=== PATIENT | male | born 1950 | race Caucasian/White ===

== ENCOUNTER → 2018-10-01 | Day surgery (SDC) | payer OTHER ==
[2018-09-24 13:28] LABS: BASOPHILS % 0.3 % (0.0-1.0); EOSINOPHILS # (AUTO) 0.1 (0.0-0.4); EOSINOPHILS % 1.3 % (0.0-6.0); HEMATOCRIT 42.2 % (38.2-49.6); LYMPHOCYTES # (AUTO) 3.1 (1.0-3.2); LYMPHOCYTES % 32.8 % (18.0-39.1); MEAN CORPUSCULAR HEMOGLOBIN 30.9 pg (28-32); MEAN CORPUSCULAR HGB CONC 33.2 g/dL (31-35); MEAN CORPUSCULAR VOLUME 93.2 fL (81-99); MONOCYTES # (AUTO) 1.1 (0.2-0.8); NEUTROPHILS % 53.4 % (38.7-80.0); PLATELET COUNT 219 x10e3/uL (140-360); RED BLOOD COUNT 4.53 x10e6/uL (4.3-5.7); RED CELL DISTRIBUTION WIDTH 12.7 % (11.7-14.4)
[~2018-10-01] MED LIST: FENTANYL CITRATE/PF 100MCG/2 ML INJ ONE; MIDAZOLAM HCL 2 MG/2 ML VIAL ONE; NORCO 7.5-3251 EACH PO; PROPOFOL IV EMULSION 10 MG/ML 50 ML VIAL ONE; PROPRANOLOL HCL40 MG PO; SIMVASTATIN40 MG PO
--- OUTSIDE RECORDS SUMMARY | 2018-10-01 06:58 | XMS REPORT | Clinical Summary ---
Author Author [facility] Organization [facility] Address Unknown Phone Unavailable Care Team Providers Care Alarm Operator Name Role Phone Rafael Dennis MD PCP Allergies Comments Active Allergy Reactions Severity Noted Date Morphine GI 05/17/2018 Intolerance Medications End Date Status Medication Sig Dispensed Refills Start Date Active simvastatin (ZOCOR) 40 MG Take 40 mg by 0 tablet mouth nightly. Active propranolol LA (INDERAL Take 60 mg by 0 LA) 60 MG 24 hr capsule mouth nightly. Active HYDROcodone-acetaminophen Take 1 tablet 0 (NORCO) 7.5-325 mg per by mouth tablet every 6 (six) hours as needed for moderate pain. Active docusate sodium (COLACE) Take 100 mg 0 100 MG capsule by mouth 2 (two) times a day. Active NICOTINE TD Place 1 patch 0 on the skin daily. Active bisacodyl (DULCOLAX) 5 mg Take 2 30 tablet 0 EC tablet tablets (10 8 mg total) by mouth daily as needed for constipation for up to 30 doses. 10/06/2018 Active diclofenac (VOLTAREN) 1 % Apply 80 g 0 gel topically 4 8 (four) times a day for 30 days. 2018 ondansetron ODT Take 1 tablet 16 tablet 1 (ZOFRAN-ODT) 4 MG (4 mg total) 8 disintegrating tablet by mouth every 8 (eight) hours as needed for nausea or vomiting for up to 30 days. 07/20/2018 oxyCODone-acetaminophen Take 1 tablet 60 tablet 0 (PERCOCET) 10-325 mg per by mouth 8 tablet every 4 (four) hours as needed for moderate pain for up to 60 days. Max Daily Amount: 6 tablets Active Problems Problem Noted Date Small bowel obstruction 09/01/2018 Lumbar radiculopathy 05/20/2018 Spinal stenosis, lumbar region, with neurogenic claudication 05/20/2018 Encounters Care Team Description Date Type Specialty Mariann Nunes MD Berberian, Esteban N., MD Small bowel obstruction (HCC) (Primary Dx); Sepsis, due to unspecified organism (HCC) 09/01/2018 [facility] General Internal Medicine - Encounter 09/06/2018 Lee Ann Freed MD 05/20/2018 Anesthesia General Surgery Event Yann Kumar MD LUMBAR LEFT L2-3, L3-4 DECOMPRESSION 05/20/2018 Surgery General Surgery Yann Kumar MD 05/20/2018 Hospital General Surgery - Encounter 05/21/2018 Yann Kumar MD 05/20/2018 Prep for Orthopedic Surgery Surgery Yann Kumar MD Preop testing 05/17/2018 Hospital Radiology Encounter Yann Kumar MD Preop testing (Primary Dx) 05/17/2018 Pre-Admit Pre-Admission Testing Testing Appointment after 09/30/2017 Family History Medical History Relation Name Comments Heart disease Father Heart disease Mother Relation Name Status Comments Father Mother Social History Date Tobacco Use Types Packs/Day Years Used Current Some Day Smoker Cigarettes 0.5 55 Smokeless Tobacco: Current User Alcohol Use Drinks/Week oz/Week Comments Yes social Transportation Needs Answer Date Recorded In the past 12 months, has lack of transportation No 09/01/2018 kept you from medical appointments or from getting medications? In the past 12 months, has lack of transportation No 09/01/2018 kept you from meetings, work, or getting things needed for daily living? Sex Assigned at Date Recorded Not on file Industry Job Start Date Occupation Not on file Not on file Not on file Travel End Travel History Travel Start No recent travel history available. Last Filed Vital Signs Time Taken Vital Sign Reading 09/06/2018 3:31 PM [facility] Blood Pressure 146/68 09/06/2018 3:31 PM [facility] Pulse 58 09/06/2018 3:31 PM [facility] EXTR[facility] Temperature 36.8 C (98.3 F) 09/06/2018 3:31 PM [facility] Respiratory Rate 18 09/06/2018 3:31 PM [facility]IAL EXTRACTOR [facility] Oxygen Saturation 96% - Inhaled Oxygen - Concentration 09/06/2018 1:02 AM [facility]PATIAL EXTRACTOR [facility] Weight 85 kg (187 lb 6.4 oz) 09/01/2018 6:40 PM [facility]IAL EXTR[facility] Height 185.4 cm (6' 1") 09/06/2018 1:02 AM [facility]PATIAL EXTRACTOR [facility] Body Mass Index 24.72 Plan of Treatment Health Maintenance Due Date Last Done Comments COLON CANCER SCREENING 1999 SHINGRIX VACCINE (1 of 2) 1999 ZOSTER VACCINE 2009 PNEUMOCOCCAL 2014 POLYSACCHARIDE VACCINE AGE 65 AND OVER PNEUMOCOCCAL-13 2014 INFLUENZA VACCINE 05/22/2018 Procedures Comments Procedure Name Priority Date/Time Associated Diagnosis POC GLUCOSE Routine 09/06/2018 9:52 AM [facility] EXTR[facility] ESTIMATED GFR Routine 09/06/2018 6:30 AM [facility]PATIAL EXTR[facility]OR [facility] PHOSPHORUS LEVEL Routine 09/06/2018 6:30 AM [facility]PATIAL EXTRACTOR ANALYSIS MAGNESIUM LEVEL Routine 09/06/2018 6:30 AM [facility] EXTR[facility]OR [facility] BASIC METABOLIC PANEL Routine 09/06/2018 6:30 AM [facility] EXTR[facility]OR [facility] CBC HEMOGRAM Routine 09/06/2018 6:30 AM [facility]PATIAL EXTRACTOR [facility] POC GLUCOSE Routine 09/06/2018 5:51 AM GE[facility]PATIAL EXTRACTOR ANALYSIS POC GLUCOSE Routine 09/06/2018 12:53 AM GE[facility]PATIAL EXTRACTOR ANALYSIS POC GLUCOSE Routine 09/05/2018 8:59 PM GE[facility]PATIAL EXTRACTOR ANALYSIS POC GLUCOSE Routine 09/05/2018 3:38 PM [facility]PATIAL EXTRACTOR A[facility]YSIS POC GLUCOSE Routine 09/05/2018 11:08 AM [facility]PATIAL EXTRACTOR [facility]IS XR ABDOMEN 1 VW PORTABLE Routine 09/05/2018 8:58 AM GEOSPATIAL EXTRACTOR ANALYSIS POC GLUCOSE Routine 09/05/2018 4:58 AM [facility]PATIAL EXTRACTOR [facility]YSIS ESTIMATED GFR Routine 09/05/2018 4:55 AM [facility]PATIAL EXTRACTOR ANALYSIS PHOSPHORUS LEVEL Routine 09/05/2018 4:55 AM GEOSPATIAL EXTRACTOR ANALYSIS MAGNESIUM LEVEL Routine 09/05/2018 4:55 AM [facility]IAL EXTRACTOR [facility]YSIS BASIC METABOLIC PANEL Routine 09/05/2018 4:55 AM [facility] EXTRACTOR [facility] CBC HEMOGRAM Routine 09/05/2018 4:55 AM [facility] EXTRACTOR [facility] POC GLUCOSE Routine 09/05/2018 1:01 AM [facility]PATIAL EXTRACTOR ANALYSIS POC GLUCOSE Routine 09/04/2018 9:19 PM GEOSPATIAL EXTRACTOR ANALYSIS POC GLUCOSE Routine 09/04/2018 6:14 PM GE[facility]PATIAL EXTRACTOR ANALYSIS POC GLUCOSE Routine 09/04/2018 3:01 PM [facility]PATIAL EXTRACTOR ANALYSIS POC GLUCOSE Routine 09/04/2018 11:01 AM GE[facility]PATIAL EXTRACTOR ANALYSIS POC GLUCOSE Routine 09/04/2018 6:16 AM GE[facility]PATIAL EXTRACTOR ANALYSIS ESTIMATED GFR Routine 09/04/2018 4:20 AM GE[facility]PATIAL EXTRACTOR ANALYSIS PHOSPHORUS LEVEL Routine 09/04/2018 4:20 AM GE[facility]PATIAL EXTRACTOR ANALYSIS MAGNESIUM LEVEL Routine 09/04/2018 4:20 AM [facility]IAL EXTRACTOR [facility]YSIS BASIC METABOLIC PANEL Routine 09/04/2018 4:20 AM [facility]IAL EXTRACTOR [facility] HC COMPLETE BLD COUNT Routine 09/04/2018 W/AUTO DIFF 4:20 AM [facility]PATIAL EXTRACTOR [facility]IS POC GLUCOSE Routine 09/04/2018 3:10 AM [facility]IAL EXTRACTOR [facility]IS POC GLUCOSE Routine 09/03/2018 8:40 PM [facility]PATIAL EXTRACTOR ANALYSIS POC GLUCOSE Routine 09/03/2018 5:14 PM [facility]IAL EXTRACTOR ANALYSIS POC GLUCOSE Routine 09/03/2018 4:44 PM [facility]PATIAL EXTRACTOR ANALYSIS POC GLUCOSE Routine 09/03/2018 4:34 PM [facility] EXTRACTOR [facility] XR CHEST 1 VW PORTABLE STAT 09/03/2018 11:30 AM [facility]PATIAL EXTRACTOR [facility]YSIS HC CATH DUAL LUMEN PICC Routine 09/03/2018 11:25 AM [facility] EXTRACTOR [facility] HC US GUIDED VASCULAR Routine 09/03/2018 ACCESS 11:25 AM [facility]PATIAL EXTRACTOR [facility] HC CVL PICC INSERT 5 YRS Routine 09/03/2018 OR > 11:25 AM [facility]PATIAL EXTRACTOR [facility]IS LACTIC ACID LEVEL Routine 09/03/2018 6:15 AM [facility]PATIAL EXTRACTOR [facility]YSIS ESTIMATED GFR Routine 09/03/2018 6:15 AM [facility] EXTRACTOR [facility] CBC HEMOGRAM Routine 09/03/2018 6:15 AM [facility]PATIAL EXTRACTOR [facility]YSIS IONIZED CALCIUM Routine 09/03/2018 6:15 AM [facility]PATIAL EXTRACTOR ANALYSIS PHOSPHORUS LEVEL Routine 09/03/2018 6:15 AM GE[facility]PATIAL EXTRACTOR ANALYSIS MAGNESIUM LEVEL Routine 09/03/2018 6:15 AM [facility]PATIAL EXTRACTOR [facility]NALYSIS COMPREHENSIVE METABOLIC Routine 09/03/2018 PANEL 6:15 AM [facility]IAL EXTRACTOR [facility]IS ESTIMATED GFR STAT 09/02/2018 7:20 AM [facility]PATIAL EXTRACTOR ANALYSIS BASIC METABOLIC PANEL STAT 09/02/2018 7:20 AM [facility] EXTRACTOR [facility] HC COMPLETE BLD COUNT STAT 09/02/2018 W/AUTO DIFF 7:20 AM [facility]PATIAL EXTRACTOR ANALYSIS LACTIC ACID LEVEL STAT 09/02/2018 7:20 AM GE[facility]PATIAL EXTRACTOR ANALYSIS LACTIC ACID LEVEL, SEPSIS Timed 09/02/2018 - NOW AND REPEAT 2X EVERY 4:26 AM [facility]PATIAL EXTRACTOR [facility]IS 3 HOURS LACTIC ACID LEVEL, SEPSIS Timed 09/02/2018 - NOW AND REPEAT 2X EVERY 1:55 AM [facility] EXTR[facility] 3 HOURS XR ABDOMEN 1 VW STAT 09/01/2018 10:03 PM [facility]PATIAL EXTRACTOR [facility]IS URINALYSIS SCREEN AND Routine 09/01/2018 MICROSCOPY, WITH REFLEX 9:58 PM [facility]PAT[facility] EXTRACTOR [facility] TO CULTURE URINE CULTURE Routine 09/01/2018 9:[address] ABDOMEN PELVIS W STAT 09/01/2018 CONTRAST 8:52 PM [facility]PATIAL EXTRACTOR [facility]NALYSIS BLOOD CULTURE, AEROBIC & Routine 09/01/2018 ANAEROBIC 7:37 PM [facility]PATIAL EXTRACTOR [facility]NALYSIS BLOOD CULTURE, AEROBIC & Routine 09/01/2018 ANAEROBIC 7:34 PM [facility] EXTRACTOR [facility]IS XR ABDOMEN 2 VW AP W STAT 09/01/2018 UPRIGHT AND/OR DECUBITUS 7:27 PM [facility]PATIAL EXTRACTOR [facility]YSIS ECG 12-LEAD STAT 09/01/2018 7:09 PM GEOSPATIAL EXTRACTOR ANALYSIS LACTIC ACID LEVEL, SEPSIS Timed 09/01/2018 - NOW AND REPEAT 2X EVERY 6:55 PM [facility]PATIAL EXTRACTOR [facility]YSIS 3 HOURS MANUAL DIFFERENTIAL STAT 09/01/2018 6:55 PM GEOSPATIAL EXTRACTOR ANALYSIS ESTIMATED GFR STAT 09/01/2018 6:55 PM GEOSPATIAL EXTRACTOR ANALYSIS LIPASE LEVEL STAT 09/01/2018 6:55 PM [facility]PATIAL EXTRACTOR ANALYSIS COMPREHENSIVE METABOLIC STAT 09/01/2018 PANEL 6:55 PM [facility]PATIAL EXTRACTOR [facility]NALYSIS CBC WITH PLATELET AND STAT 09/01/2018 DIFFERENTIAL 6:55 PM [facility]PATIAL EXTRACTOR [facility]NALYSIS ECG ED PRELIMINARY Routine 09/01/2018 INTERPRETATION 6:52 PM GEOSPATIAL EXTRACTOR ANALYSIS OR FL > 1 HOUR Routine 05/20/2018 2:53 PM CDT XR LUMBAR SPINE 1 VW Routine 05/20/2018 2:50 PM CDT TYPE AND SCREEN Routine 05/20/2018 1:18 PM CDT MA AN ELECTIVE Routine 05/20/2018 ENDOTRACHEAL AIRWAY 9:21 AM CDT Procedure Note - Lee Ann Freed MD - 05/20/2018 9:21 AM CDT Airway Date/Time: 05/20/2018 8:55 AM Performed by: LEE ANN FREED Authorized by: LEE ANN FREED Urgency: Elective Difficult Airway: No Anesthesio logist: LEE ANN FREED Preoxygena suma with 100% O2: Yes C-spine Precaution s Maintained Throughout : Yes Mask Ventilatio n: Easy mask Final Airway Type: Endotrache al airway Final Endotrache al Airway: ETT Cuffed: Yes Technique Used: Direct laryngosco py Devices/Me thods Used in Placement: Intubatin g stylet Insertion Site: Oral Laryngosco pe Blade/Vide olaryngosc ope Blade Size: 2 ETT Size (mm): 8.0 Cuff at minimum occlusion pressure: Yes Measured from: Lips ETT to Lips (cm): 21 Placement Verified by: CO2 detection, direct visualizat ion and equal breath sounds Laryngosco pic view: Grade IIa - partial view of glottis Rapid Sequence Induction (RSI): No Modified RSI: No Number of Attempts at Approach: 1 LAMINECTOMY, LUMBAR 05/20/2018 LUMBAR STENOSIS 8:00 AM CDT M48.06, M54.16 Special Needs NEEDS ALTAF TABLE C-ARM, TEDS SCD,S, CLINDAMYCI N 900 MG IV, SSEP (OFFICE TO SCHEDULE W/ AXIS) XR CHEST 2 VW Routine 05/17/2018 Preop testing 9:45 AM CDT ECG 12-LEAD Routine 05/17/2018 Preop testing 9:21 AM CDT ZZESTIMATED GFR Routine 05/17/2018 9:21 AM CDT PROTHROMBIN TIME WITH INR Routine 05/17/2018 Preop testing 9:21 AM CDT PARTIAL THROMBOPLASTIN Routine 05/17/2018 Preop testing TIME (PTT) 9:21 AM CDT BASIC METABOLIC PANEL Routine 05/17/2018 Preop testing 9:21 AM CDT HC COMPLETE BLD COUNT Routine 05/17/2018 Preop testing W/AUTO DIFF 9:21 AM CDT after 09/30/2017 Results * POC glucose (09/06/2018 9:52 AM GEOSPATIAL EXTRACTOR ANALYSIS) Only the most recent of 18 results within the time period is included. POC glucose 140 (H) 65 - 100 mg/dL [facility] Comment: [employer] Meter ID: [id number] Cash Clerk: Eileen Dhillon Performing Organization Address City/State/Zipcode Phone Number [facility] [address] [place] [address] PATHOLOGY AND GENOMIC MEDICINE [facility] [place] [address] [place], [place] [id number] [place] [address] * Estimated GFR (09/06/2018 6:30 AM GEOSPATIAL EXTRACTOR ANALYSIS) Only the most recent of 6 results within the time period is included. Estimated GFR 87 mL/min/1.73 m2 [facility] Comment: [employer] CatergoryUnitsInte rpretation G1 >=90 Normal or high G2 60-89Mildly decreased [id number] Mildly to moderately decreased H8m80-40 Moderately to severely decreased G4 15-29Severely decreased G5 <15Kidney failure The eGFR was calculated using the Chronic Kidney Disease Epidemiology Collaboration (CKD-EPI) equation. Interpretation is based on recommendations of the National Kidney Foundation-Kidney Disease Outcomes Quality Initiative (NKF-KDOQI) published in 2014. Specimen Plasma specimen Performing Organization Address City/[facility]/[place] Phone Number [place] [address] [place] [phone] PATHOLOGY AND GENOMIC MEDICINE [address] * CBC hemogram (09/06/2018 6:30 AM GEOSPATIAL EXTRACTOR ANALYSIS) Only the most recent of 3 results within the time period is included. WBC 11.1 (H) 4.2 - 11.0 k/uL [facility] RBC 3.58 (L) 4.04 - 5.86 m/uL [facility] HGB 11.1 (L) 13.0 - 17.3 g/dL [facility] HCT 34.1 34.0 - 45.0 % [facility] MCV 95.3 80.0 - 98.0 fL [facility] MCH 31.0 27.0 - 34.0 pg [facility] MCHC 32.6 31.5 - 36.5 g/dL [facility] RDW - SD 43.7 37.0 - 51.0 fL [facility] MPV 11.3 (H) 7.4 - 10.4 fL [facility] Platelet count 156 150 - 400 k/uL [facility] Nucleated RBC 0.00 /100 WBC [facility] Specimen Blood Performing Organization Address City/[facility]/Zipcode Phone Number [address] [address] PATHOLOGY AND GENOMIC MEDICINE [address] * Phosphorus level (09/06/2018 6:30 AM GEOSPATIAL EXTRACTOR ANALYSIS) Only the most recent of 4 results within the time period is included. Phosphorus 2.5 2.4 - 4.5 mg/dL [facility] Specimen Plasma specimen Performing Organization Address [facility] Phone Number [place] [phone] PATHOLOGY AND GENOMIC MEDICINE [address] * Magnesium level (09/06/2018 6:30 AM GEOSPATIAL EXTRACTOR ANALYSIS) Only the most recent of 4 results within the time period is included. Magnesium 1.90 1.60 - 2.40 mg/dL [facility] Specimen Plasma specimen Performing Organization Address [facility] [place] [address] PATHOLOGY AND [facility] MEDICINE [address] * Basic metabolic panel (09/06/2018 6:30 AM GEOSPATIAL EXTRACTOR ANALYSIS) Only the most recent of 5 results within the time period is included. Sodium 141 135 - 150 mEq/L [facility] Potassium 3.9 3.5 - 5.0 mEq/L [facility] Chloride 104 98 - 112 mEq/L [facility] CO2 28 24 - 31 mmol/L [facility] Anion gap 9@ANIO 7 - 15 mEq/L [facility] BUN 18 7 - 18 mg/dL [facility] Creatinine 0.90 0.70 - 1.20 mg/dL [facility] Glucose 130 (H) 65 - 100 mg/dL [facility] Calcium 8.4 (L) 8.8 - 10.2 mg/dL [facility] Specimen Plasma specimen Performing Organization Address [facility]/Zipcode Phone Number [facility] OF [address] [place] [address] PATHOLOGY AND GENOMIC MEDICINE [facility] [address] [place] [address] [employer] [facility] * XR Abdomen 1 Vw Portable (09/05/2018 8:58 AM GEOSPATIAL EXTRACTOR ANALYSIS) Narrative Performed At EXAMINATION:XR ABDOMEN 1 VW [facility] CLINICAL HISTORY: Nauseavomiting COMPARISON:Abdominal radiograph from 09/01/[address] abdomen pelvis from 09/01/2018 IMPRESSION: 1.Mild improvement of gaseous distention of small bowel with some gas in the colon represents improving partial small bowel obstruction. 2.The nasogastric tube has been removed. 3.No pathologic intra-abdominal calcifications are present. 4.Multilevel lumbar spondylosis is noted. 5.Linear atelectasis is noted in the left lung base. I personally reviewed the images and the resident's findings and agree with the final report. [facility]-[id number] Procedure Note Hm Interface, Radiology Results Incoming - 09/05/2018 10:55 AM GEOSPATIAL EXTRACTOR ANALYSIS EXAMINATION: XR ABDOMEN 1 VW PORTABLE CLINICAL HISTORY: Nausea vomiting COMPARISON: Abdominal radiograph from 09/01/[address] abdomen pelvis from 09/01/2018 IMPRESSION: 1. Mild improvement of gaseous distention of small bowel with some gas in the colon represents improving partial small bowel obstruction. 2. The nasogastric tube has been removed. 3. No pathologic intra-abdominal calcifications are present. 4. Multilevel lumbar spondylosis is noted. 5. Linear atelectasis is noted in the left lung base. I personally reviewed the images and the resident's findings and agree with the final report. [facility]-[id number] Performing Organization Address City/State/Zipcode Phone Number [facility] [address] [place] [address] * CBC with platelet and differential (09/04/2018 4:20 AM GEOSPATIAL EXTRACTOR ANALYSIS) Only the most recent of 4 results within the time period is included. WBC 8.1 4.2 - 11.0 k/uL [facility] RBC 3.76 (L) 4.04 - 5.86 m/uL [facility] HGB 11.8 (L) 13.0 - 17.3 g/dL [facility] HCT 35.4 34.0 - 45.0 % [facility] MCV 94.1 80.0 - 98.0 fL [facility] MCH 31.4 27.0 - 34.0 pg [facility] MCHC 33.3 31.5 - 36.5 g/dL [facility] RDW - SD 42.9 37.0 - 51.0 fL [facility] MPV 11.2 (H) 7.4 - 10.4 fL [facility] Platelet count 148 (L) 150 - 400 k/uL [facility] Nucleated RBC 0.00 /100 WBC [facility] Neutrophils 63.9 36.0 - 66.0 % [facility] Lymphocytes 22.4 (L) 24.0 - 44.0 % [facility] Monocytes 11.3 (H) 0.0 - 6.0 % [facility] Eosinophils 1.6 0.0 - 6.0 % [facility] Basophils 0.4 0.0 - 1.2 % [facility] Immature granulocytes 0.4 0.0 - 1.0 % [facility] Specimen Blood Performing Organization Address City/State/Zipcode Phone Number [facility] DEPARTMENT OF [address] [facility] [place] [address] PATHOLOGY AND GENOMIC MEDICINE [facility] [address] [facility] [place], [place] [phone] [place] [address] * XR Chest 1 Vw Portable (09/03/2018 11:30 AM GEOSPATIAL EXTRACTOR ANALYSIS) Narrative Performed At Examination:XR CHEST 1 VW PORTABLE [facility] Clinical history:"tip of picc placement" Comparison:05/17/2018 IMPRESSION: There are no new alveolar opacities within either lung.No pneumothoraces are identified. The cardiomediastinal silhouette is unchanged. The bones of the chest are unchanged. Right central line is seen with its tip in lower SVC. Nasogastric tube courses into the stomach. [facility]-[id number] Procedure Note Hm Interface, Radiology Results Incoming - 09/03/2018 11:36 AM GEOSPATIAL EXTRACTOR ANALYSIS Examination: XR CHEST 1 VW PORTABLE Clinical history: "tip of picc placement" Comparison: 05/17/2018 IMPRESSION: There are no new alveolar opacities within either lung. No pneumothoraces are identified. The cardiomediastinal silhouette is unchanged. The bones of the chest are unchanged. Right central line is seen with its tip in lower SVC. Nasogastric tube courses into the stomach. [facility]-[id number] Performing Organization Address City/State/Zipcode Phone Number [facility] [address] [place] [address] * PICC insertion (09/03/2018 11:25 AM GEOSPATIAL EXTRACTOR ANALYSIS) Narrative Performed At Barbara Santamaria RN 09/03/2018 11:49 AM PICC insertion Date/Time: 09/03/2018 11:25 AM Performed by: Barbara Santamaria RN Authorized by: Eric Venegas MD Consent: Consent obtained:Written Consent given by:Patient and spouse Risks discussed: arterial puncture, incorrect placement, nerve damage, bleeding, infection, pneumothorax, superficial thrombus and deep vein thrombus Alternatives discussed:No treatment [place] protocol: Procedure explained and questions answered to patient or proxy's satisfaction: yes Relevant documents present and verified: yes Test results available and properly labeled: yes Imaging studies available: yes Required blood products, implants, devices, and special equipment available: yes Site/side marked: yes Immediately prior to procedure, a time out was called: yes Patient identity confirmed:Verbally with patient, arm band and hospital-assigned identification number Pre-procedure details: Hand hygiene: Hand hygiene performed prior to insertion Sterile barrier technique: All elements of maximal sterile technique followed Skin preparation:ChloraPrep PICC Line Placement Details (Will create an LDA): Extremity Cirumference Upper (cm):35 Extremity Circumference Forearm (cm):28 Extremity Circumference Site:29.5 Patient position:Flat Vessel Size (mm):5 Indication:TPN Location:Right brachial Device Type:Valved Catheter size:5 Fr PICC Characteristics: Catheter Brand:POWER PICC SOLO 5FR DLS CATHETER External Catheter Length (cm):0 Internal Catheter Length (cm):41 Total Catheter Length (cm):41 Catheter Lot Number:[id number] Catheter Expiration Date:09/20/1919 Procedure Details: Landmarks identified: yes Ultrasound guidance: yes Sterile ultrasound techniques: Sterile gel and sterile probe covers were used Number of attempts:1 Number of PICC kits used during procedure:1 Purpose of procedure:PICC Placement Successful PICC Placement: Yes Patency/Placement:Flushes without difficulty, flushed with 10 mL normal saline and positive blood return PICC placed utlizing ultrasound-guided Modified Seldinger Technique: Yes Dressing/Securement:Gauze applied and catheter securement device Blood Loss Amount:Less than 20 mL Post-Procedure Details: Post-procedure:Dressing applied Tip placement confirmed by chest x-ray: Yes Name of provider who confirmed tip placement::PICC TIP IN LOWER SVC, MARIANNA LAND Patient tolerance of procedure:Tolerated well, no immediate complications Comments: CONSULT FOR PICC R/T TPN. FIRST TIME PICC LINE, ALL QUESTIONS ANSWERED WITH CONSENT AT BEDSIDE. RIGHT ARM BRACHIAL VEIN ACCESS AND PLACEMENT OF BARD POWER PICC SOLO 5FR DLS CATHETER AT 41CM. TROUBLESHOOTING OF ARM REPOSITIONING R/T CATHETER ADVANCEMENT STOPPING AT 11CM. SUCCESSFUL TROUBLESHOOTING FOR PLACEMENT INTO SVC. CXR TO VERIFY TIP IN LOWER SVC. REPORT GIVEN TO PRIMARY NURSE KEITH MELO RN 2 [facility]. * Lactic acid level (09/03/2018 6:15 AM GEOSPATIAL EXTRACTOR ANALYSIS) Only the most recent of 2 results within the time period is included. Lactic acid 0.6 0.5 - 2.2 mmol/L [facility] Specimen Blood Performing Organization Address City/State/Zipcode Phone Number [facility] DEPARTMENT [facility] [place] [address] PATHOLOGY AND GENOMIC MEDICINE [facility] [address] [place], [place] [phone] [place] [address] * Ionized calcium (09/03/2018 6:15 AM GEOSPATIAL EXTRACTOR ANALYSIS) pH 7.40 [facility] Ionized calcium 1.11 1.11 - 1.32 mmol/L [facility] Specimen Plasma specimen Performing Organization Address City/[facility]/Zipcode Phone Number [facility] DEPARTMENT OF [address] [place] [address] PATHOLOGY AND GENOMIC MEDICINE [facility] [address] * Comprehensive metabolic panel (09/03/2018 6:15 AM GEOSPATIAL EXTRACTOR ANALYSIS) Only the most recent of 2 results within the time period is included. Sodium 141 135 - 150 mEq/L [facility] Potassium 4.1 3.5 - 5.0 mEq/L [facility] Chloride 104 98 - 112 mEq/L [facility] CO2 22 (L) 24 - 31 mmol/L [facility] Anion gap 15@ANIO 7 - 15 mEq/L [facility] BUN 17 7 - 18 mg/dL [facility] Creatinine 1.10 0.70 - 1.20 mg/dL [facility] Glucose 73 65 - 100 mg/dL [facility] Calcium 8.5 (L) 8.8 - 10.2 mg/dL [facility] Protein 5.3 (L) 6.3 - 8.3 g/dL [facility] Albumin 2.4 (L) 3.5 - 5.0 g/dL [facility] A/G ratio 0.8 0.7 - 3.8 [facility] Alkaline phosphatase 53 0 - 129 U/L [facility] AST 21 10 - 50 U/L [facility] ALT 10 5 - 50 U/L [facility] Total bilirubin 0.4 0.2 - 1.2 mg/dL [facility] Specimen Plasma specimen Performing Organization Address City/State/Zipcode Phone Number [facility] DEPARTMENT OF [address] [place] [address] PATHOLOGY AND GENOMIC MEDICINE [facility] [address] * Lactic acid level, SEPSIS - Now and repeat 2x every 3 hours (09/02/2018 4:26 AM GEOSPATIAL EXTRACTOR ANALYSIS) Only the most recent of 3 results within the time period is included. Lactic acid 0.9 0.5 - 2.2 mmol/L [facility] Specimen Blood Performing Organization Address City/State/Zipcode Phone Number [facility] DEPARTMENT OF [address] [place] [address] PATHOLOGY AND GENOMIC MEDICINE [facility] [address] [place], [place] [address] [place] [address] * XR Abdomen 1 Vw (09/01/2018 10:03 PM GEOSPATIAL EXTRACTOR ANALYSIS) Narrative Performed At EXAMINATION:XR ABDOMEN 1 VW [facility] CLINICAL HISTORY:Abd painunspecified, NG tube placement COMPARISON:09/01/2018 at 1909 IMPRESSION: Nasogastric tube is seen with tip projecting over the body of the stomach. Nonobstructive bowel gas pattern. Contrast opacifies the collecting system of the kidneys. No acute osseous abnormalities. Mild degenerative change of lower thoracic and lower lumbar spine. [facility]-[id number] Procedure Note Hm Interface, Radiology Results Incoming - 09/01/2018 10:09 PM GEOSPATIAL EXTRACTOR ANALYSIS EXAMINATION: XR ABDOMEN 1 VW CLINICAL HISTORY: Abd pain unspecified, NG tube placement COMPARISON: 09/01/2018 at 1909 IMPRESSION: Nasogastric tube is seen with tip projecting over the body of the stomach. Nonobstructive bowel gas pattern. Contrast opacifies the collecting system of the kidneys. No acute osseous abnormalities. Mild degenerative change of lower thoracic and lower lumbar spine. [facility]-[id number] Performing Organization Address City/[facility]/Zipcode Phone Number [facility] [address] [place] [address] * Urinalysis screen and microscopy, with reflex to culture (09/01/2018 9:58 PM GEOSPATIAL EXTRACTOR ANALYSIS) Specimen site Clean catch [facility] Color, UA Yellow [facility] Appearance, UA Clear [facility] Specific gravity, UA 1.033 1.001 - 1.035 [facility] pH, UA 6.0 5.0 - 8.5 [facility] Protein, UA Negative Negative [facility] Glucose, UA Negative Negative [facility] Ketones, UA Negative Negative [facility] Bilirubin, UA Negative Negative [facility] Blood, UA Negative Negative [facility] Nitrite, UA Negative Negative [facility] Urobilinogen, UA Negative <2.0 [facility] Leukocyte esterase, UA Negative Negative [facility] WBC, UA 1 0 - 1 /HPF [facility] RBC, UA 2 0 - 5 /HPF [facility] Bacteria, UA None seen None seen [facility] Yeast, UA None seen [facility] Yeast with pseudohyphae, None seen [facility] Hyaline casts, UA 6 /LPF [facility] Specimen Urine Performing Organization Address City/[facility]/[place]ust[place] Phone Number [facility] DEPARTMENT [address] [place] [address] PATHOLOGY AND GENOMIC MEDICINE [address] * Urine culture (09/01/2018 9:58 PM GEOSPATIAL EXTRACTOR ANALYSIS) Urine culture SEE COMMENTComment: [facility] Bacteriuria screen negative. [facility] Specimen Urine Performing Organization Address City/[facility]/[place]ustcode Phone Number [facility] [place] [address] PATHOLOGY AND GENOMIC MEDICINE [address] * CT Abdomen Pelvis W Contrast (09/01/2018 8:52 PM GEOSPATIAL EXTRACTOR ANALYSIS) Narrative Performed At EXAMINATION:CT ABDOMEN PELVIS W CONTRAST HM [facility] CLINICAL HISTORY:peritonitisgeneralized abdominal painhx of PUD TECHNIQUE: Multiple axial images of the abdomen and pelvis were obtained following intravenous administration of iodinated contrast. Sagittal and coronal computerized reformatted images were also obtained. CT imaging was performed with iterative reconstruction technique and/or automated exposure control to reduce radiation dose. COMPARISON:12/09/2015 IMPRESSION: Mild bibasilar atelectasis/scarring. Calcified granulomata are seen of the right lower lobe. Coronary artery calcifications are seen. Trace pericardial effusion. Common bile duct is dilated to 1.4 cm, the exact etiology of which is unclear. This would be better assessed with MRI/MRCP or ERCP when clinically feasible. There is mild prominence of intrahepatic biliary ductal system. The gallbladder is contracted. Liver, spleen, pancreas, adrenal glands are normal. Kidneys, ureters and bladder are normal. Small ascites. No free intraperitoneal air. Atherosclerotic vascular calcifications are seen. Moderate atherosclerotic calcification is seen of the origin of the left renal artery. Diverticulosis is seen without diverticulitis. The appendix is not seen. There are dilated fluid-filled loops of small bowel measuring up to 3.9 cm. A distinct transition point is seen of the distal jejunum (series 2, images 90-105), proximal to which, fecalized small bowel content is identified. Wall thickening of the small bowel is seen at this level, and these findings are compatible with a moderate grade small bowel obstruction. Given the thickening seen at the transition point, underlying stricture or mass cannot be entirely excluded. Question of ulcerative defect is seen of the distal stomach (series 2, image 45-46). No acute osseous abnormalities. Mild degenerative change of the lumbar spine. Postoperative appearance of the lower lumbar spine. There is 4 mm retrolisthesis of L2 on L3. CONCLUSION: Moderate grade small bowel obstruction is seen with transition point of the distal jejunum. Wall thickening of the small bowel is seen at the transition point, and underlying stricture or mass cannot be entirely excluded. Question of ulcerative defect is seen of the distal stomach (series 2, image 45-46). This would be better assessed with dedicated endoscopy. Common bile duct is dilated to 1.4 cm, the exact etiology of which is unclear. This would be better assessed with MRI/MRCP or ERCP when clinically feasible. [facility]-[id number] Procedure Note [facility], Radiology Results Incoming - 09/01/2018 9:06 PM GEOSPATIAL EXTRACTOR ANALYSIS EXAMINATION: CT ABDOMEN PELVIS W CONTRAST CLINICAL HISTORY: peritonitis generalized abdominal pain hx of PUD TECHNIQUE: Multiple axial images of the abdomen and pelvis were obtained following intravenous administration of iodinated contrast. Sagittal and coronal computerized reformatted images were also obtained. CT imaging was performed with iterative reconstruction technique and/or automated exposure control to reduce radiation dose. COMPARISON: 12/09/2015 IMPRESSION: Mild bibasilar atelectasis/scarring. Calcified granulomata are seen of the right lower lobe. Coronary artery calcifications are seen. Trace pericardial effusion. Common bile duct is dilated to 1.4 cm, the exact etiology of which is unclear. This would be better assessed with MRI/MRCP or ERCP when clinically feasible. There is mild prominence of intrahepatic biliary ductal system. The gallbladder is contracted. Liver, spleen, pancreas, adrenal glands are normal. Kidneys, ureters and bladder are normal. Small ascites. No free intraperitoneal air. Atherosclerotic vascular calcifications are seen. Moderate atherosclerotic calcification is seen of the origin of the left renal artery. Diverticulosis is seen without diverticulitis. The appendix is not seen. There are dilated fluid-filled loops of small bowel measuring up to 3.9 cm. A distinct transition point is seen of the distal jejunum (series 2, images 90- 105), proximal to which, fecalized small bowel content is identified. Wall thickening of the small bowel is seen at this level, and these findings are compatible with a moderate grade small bowel obstruction. Given the thickening seen at the transition point, underlying stricture or mass cannot be entirely excluded. Question of ulcerative defect is seen of the distal stomach (series 2, image 45-46). No acute osseous abnormalities. Mild degenerative change of the lumbar spine. Postoperative appearance of the lower lumbar spine. There is 4 mm retrolisthesis of L2 on L3. CONCLUSION: Moderate grade small bowel obstruction is seen with transition point of the distal jejunum. Wall thickening of the small bowel is seen at the transition point, and underlying stricture or mass cannot be entirely excluded. Question of ulcerative defect is seen of the distal stomach (series 2, image 45- 46). This would be better assessed with dedicated endoscopy. Common bile duct is dilated to 1.4 cm, the exact etiology of which is unclear. This would be better assessed with MRI/MRCP or ERCP when clinically feasible. [facility]-[id number] Performing Organization Address City/[facility]/[place] Phone Number [facility] [address] [place] [address] * Blood culture, aerobic & anaerobic (09/01/2018 7:37 PM GEOSPATIAL EXTRACTOR ANALYSIS) Only the most recent of 2 results within the time period is included. Blood culture isolate No growth after 5 days of [facility] incubation. HOSPITAL Comment: Specimen Information Specimen Source: Blood Specimen Site: left ac Specimen Blood Performing Organization Address City/[facility]/[place] Phone Number [facility] DEPARTMENT OF [address] [place] [address] PATHOLOGY [place] [address] HOSPITAL * XR Abdomen 2 Vw Ap W Upright And/Or Decubitus (09/01/2018 7:27 PM GEOSPATIAL EXTRACTOR ANALYSIS) Narrative Performed At EXAMINATION: XR ABDOMEN 2 VW AP W UPRIGHT AND OR DECUBITUS [facility] INDICATION: peritonitisevaluate for free air COMPARISON: Limited comparison with chest radiograph 05/17/2018 IMPRESSION: Nonobstructive bowel gas pattern. No free gas is identified. Spondylosis. [facility]-[id number] Procedure Note Interface, Radiology Results Incoming - 09/01/2018 7:46 PM GEOSPATIAL EXTRACTOR ANALYSIS EXAMINATION: XR ABDOMEN 2 VW AP W UPRIGHT AND OR DECUBITUS INDICATION: peritonitis evaluate for free air COMPARISON: Limited comparison with chest radiograph 05/17/2018 IMPRESSION: Nonobstructive bowel gas pattern. No free gas is identified. Spondylosis. [facility]-[id number] Performing Organization Address [facility] Phone Number [facility] [address] [place] [address] * ECG 12 lead (09/01/2018 7:09 PM GEOSPATIAL EXTRACTOR ANALYSIS) Only the most recent of 2 results within the time period is included. Ventricular rate 97 [facility] Atrial rate 97 [facility] MA interval 134 [facility] QRSD interval 122 [facility] QT interval 386 [facility] QTC interval 490 [facility] P axis 1 35 [facility] QRS axis 1 216 [facility] T wave axis 33 [facility] EKG impression Normal sinus rhythm-Right [facility] MUSE bundle branch block-Abnormal ECG-- Narrative Performed At Performing Organization Address [facility] Phone Number [facility] MUSE [address] [place] [address] * Manual differential (09/01/2018 6:55 PM GEOSPATIAL EXTRACTOR ANALYSIS) Manual differential PERFORMED [facility] Neutrophils 90.0 (H) 36.0 - 66.0 % [facility] Lymphocytes 4.0 (L) 24.0 - 44.0 % [facility] Monocytes 6.0 0.0 - 6.0 % [facility] Eosinophils 0.0 0.0 - 6.0 % [facility] Basophils 0.0 0.0 - 1.2 % [facility] Metamyelocytes 0 0 - 1 % [facility] Promyelocytes 0 0 - 1 % [facility] Platelet slide review Burak adequate [facility] Dohle bodies Occasional [facility] Toxic granulation Slight [facility] Neutrophils, vacuolated Slight [facility] Hypersegmented Occasional [facility] Anisocytosis 1+ [facility] Polychromasia Slight [facility] Enlarged platelets Occasional [facility] Performing Organization Address City/[facility]/[place]code Phone Number [facility] [place] [address] PATHOLOGY AND GENOMIC MEDICINE [address] * Lipase level (09/01/2018 6:55 PM GEOSPATIAL EXTRACTOR ANALYSIS) Lipase 16 13 - 60 U/L [facility] Specimen Plasma specimen Performing Organization Address City/[facility]/[place] Phone Number [facility] [place] [address] PATHOLOGY AND GENOMIC MEDICINE [address] * ECG ED Preliminary Interpretation - Not an Order (09/01/2018 6:52 PM GEOSPATIAL EXTRACTOR ANALYSIS) Narrative Performed At Mariann Nunes MD 09/07/20185:23 PM ECG ED Preliminary Interpretation - Not an Order Performed by: Mariann Nunes MD Authorized by: Mariann Nunes MD ECG reviewed by ED Physician in the absence of a behavioral pediatrician: yes Interpretation: Interpretation: normal Rate: ECG rate:97 ECG rate assessment: normal Rhythm: Rhythm: sinus rhythm Ectopy: Ectopy: none QRS: QRS axis:Normal Conduction: Conduction: abnormal Abnormal conduction: complete RBBB ST segments: ST segments:Normal T waves: T waves: normal * OR FL > I Hour (05/20/2018 2:53 PM CDT) Narrative Performed At EXAMINATION:OR FL 1 HOUR HM [facility] C-arm fluoroscopy was requested in OR.FLUORO TIME 1:12 IMPRESSION: Separate operative report will be issued by the physician performing the procedure. [id number] Procedure Note Interface, Radiology Results Incoming - 05/20/2018 3:23 PM CDT EXAMINATION: OR FL 1 HOUR C-arm fluoroscopy was requested in OR. FLUORO TIME 1:12 IMPRESSION: Separate operative report will be issued by the physician performing the procedure. [id number] Performing Organization Address [facility]/[place]ustcoid Phone Number [facility] [address] [place] [address] * XR Lumbar Spine 1 Vw (05/20/2018 2:50 PM CDT) Narrative Performed At EXAMINATION:XR LUMBAR SPINE 1 VW [facility] CLINICAL HISTORY:Intraoperative working film COMPARISON:None. FINDINGS:Lateral film of the lumbosacral spine taken with the spot film device with C-arm in the operating room. A needle projects dorsal to the lamina at the level of L3. No additional findings of significance are noted. IMPRESSION: Intraoperative working film as noted. [id number] Procedure Note Interface, Radiology Results Incoming - 05/20/2018 4:32 PM CDT EXAMINATION: XR LUMBAR SPINE 1 VW CLINICAL HISTORY: Intraoperative working film COMPARISON: None. FINDINGS:Lateral film of the lumbosacral spine taken with the spot film device with C-arm in the operating room. A needle projects dorsal to the lamina at the level of L3. No additional findings of significance are noted. IMPRESSION: Intraoperative working film as noted. [id number] Performing Organization Address [facility] Phone Number [facility] [address] [place] [address] * Type and screen (05/20/2018 1:18 PM CDT) ABO grouping O [facility]OMIC MEDIC[facility] Rh type POS [facility] AND GENOMIC MEDICINE Antibody screen NEG [facility]Y AND GENOMIC MEDICINE Specimen Blood Performing Organization Address [facility]/[place]ustcode Phone Number [address] [place] [address] PATHOLOGY AND GENOMIC MEDICINE * XR Chest 2 Vw (05/17/2018 9:45 AM CDT) Narrative Performed At EXAMINATION:XR CHEST 2 VW [facility] CLINICAL HISTORY:Z01.818 Encounter for other preprocedural examination, preop COMPARISON:December 08, 2015 FINDINGS: The heart size is normal. The mediastinum is unremarkable. There is scarring or atelectasis at the lung bases. IMPRESSION: No acute finding is visualized [id number] Procedure Note Interface, Radiology Results Incoming - 05/17/2018 10:22 AM CDT EXAMINATION: XR CHEST 2 VW CLINICAL HISTORY: Z01.818 Encounter for other preprocedural examination, preop COMPARISON: December 08, 2015 FINDINGS: The heart size is normal. The mediastinum is unremarkable. There is scarring or atelectasis at the lung bases. IMPRESSION: No acute finding is visualized [id number] Performing Organization Address [facility]/[place]ust[place] Phone Number [facility] [address] [place] [address] * Estimated GFR (05/17/2018 9:21 AM CDT) GFR Non Af Amer 66 mL/min/1.73 m2 [facility] OF PATHOLOGY AND [facility] MEDICINE GFR Af Amer 80 mL/min/1.73 m2 [facility] OF Comment: PATHOLOGY AND Chronic kidney disease: <60 GENOMIC MEDICINE mL/min/1.73m2 Kidney failure: <15 mL/min/1.73m2 The estimated GFR is calculated from the IDMS-traceable Modification of Diet in Renal Disease Equation. The accuracy of the calculation is poor when the creatinine is normal. Calculated values >90 mL/min/1.73m2 are not reported. This equation has not been validated in children (<18 years), women, the elderly (>70 years), or ethnic groups other than Caucasians and Americans. Specimen Plasma specimen Performing Organization Address [facility] Phone Number [facility] [id number] [place] [address] [address] [place] [id number] PATHOLOGY AND [facility] * Partial thromboplastin time, activated (05/17/2018 9:21 AM CDT) PTT 24.6 23.0 - 36.0 sec [facility] OF Comment: PATHOLOGY AND PTT therapeutic range for [facility] unfractionated heparin is 61.0-112.0 seconds which corresponds to Anti-Xa 0.3-0.7 U/ml. Specimen Blood Performing Organization Address [facility] Phone Number [address] [place] [address] PATHOLOGY AND [facility] MEDICINE * Prothrombin time with INR (05/17/2018 9:21 AM CDT) Prothrombin time 12.9 12.0 - 15.0 sec [facility] OF PATHOLOGY AND GENOMIC MEDICINE INR 1.0 [facility] OF Comment: PATHOLOGY AND The International Normalized GENOMIC MEDICINE Ratio (INR) is a therapeutic monitoring tool for patients who are stable on oral anticoagulant therapy. An INR of 2.0-3.0 is suggested for deep vein thrombosis/pulmonary embolism. Specimen Blood Performing Organization Address City/State/Zipcode [place] [address] [place] [address] PATHOLOGY AND GENOMIC MEDICINE after 09/30/2017 Insurance Payer Benefit Subscriber ID Type Phone Address Plan / Group [employer] TEX[employer] xxxxxxxxx O [facility] Advance Directives Patient has advance care planning documents on file. For more information, carolyn barros contact: Rodney Mcgill [address] [place] [address]
--- OUTSIDE RECORDS SUMMARY | 2018-10-01 06:58 | XMS REPORT | Continuity of Care Document ---
Author Author Ashlyn naomi Re Pet Interface Address Unknown Phone Unavailable Problems Problem Status Onset Date Classification Date Reported Comments Source K56.609 - UNSP INTESTNL OBST, UNSP TO Active 09/11/2018 [facility] OPID Summer Benzie Medications Medication Details Route Status Patient Instructions Ordering Provider Order Date Source Allergies, Adverse Reactions, Alerts Substance Category Reaction Severity Reaction type Status Date Reported Comments Source Immunizations Immunization Date Given Site Status Last Updated Comments Source Results Order Name Results Value Reference Range Date Interpretation Comments Source Enterography Abd/Pel w IV contrast CT Enterography Abd/Pel w IV contrast CT PROCEDURE: CT ABDOMEN AND PELVIS WITH CONTRAST Clinical Indication: K56.609 Unspecified intestinal obstruction, unspecified as to partial versus complete obstruction ; Comparison: None available. TECHNIQUE: Helical imaging was performed diaphragm through the symphysis with multiplanar reformations obtained. IV CONTRAST: 100 mL Omnipaque 300 GI CONTRAST: 900 mL, type not specified CT imaging performed at this location utilizes radiation dose optimization techniques which include one or more of the following: -Automated exposure control -Adjustment of the mA and/or kV according to patient size -Use of iterative reconstruction technique CT Radiation Dose DLP 698.68 mGy-cm FINDINGS: LOWER CHEST: Calcified granuloma right lower lobe. Aside from mild dependent changes in the posterior lungs, the lung bases are otherwise clear. Coronary arterial calcifications. LIVER: 7 mm circumscribed low-attenuation lesion segment 3 left lobe is too small to characterize. Scattered calcified granulomata within otherwise unremarkable liver. The portal venous system is patent. BILIARY TREE: Normal. GALLBLADDER: Normal. PANCREAS: Normal. SPLEEN: Scattered calcified granulomata within otherwise unremarkable spleen. ADRENALS: Normal. KIDNEYS: Subcentimeter partially exophytic low-attenuation lesion lateral cortex left kidney is too small to characterize, compatible with benign finding. The kidneys are otherwise normal. No hydronephrosis. BOWEL: The unopacified and contracted stomach is unremarkable. The duodenum is unremarkable. The jejunum is incompletely distended. Single mildly dilated loop of jejunum left upper quadrant without discrete transition point or mass lesion. Allowing for incomplete distention, mucosal pattern of the remaining jejunum is normal. The contracted ileum is unremarkable. No mesenteric edema, adenopathy or other focal pathology. The colon is unremarkable. Few sigmoid diverticula without regional inflammatory change. APPENDIX: Not visualized. CT evidence for appendicitis. PERITONEUM: No free intraperitoneal fluid or air. RETROPERITONEUM: No adenopathy. Atherosclerosis aortoiliac system with mild irregular aortic ectasia. Maximum diameter infrarenal aorta 2.3 cm. No para- aortic fluid collection. Circumaortic left renal vein. PELVIS: No pelvic mass. The urinary bladder is normal. MUSCULOSKELETAL: Multilevel degenerative disc disease and facet arthropathy lumbar spine. Grade 1 retrolisthesis L2 relative to L3 with associated degenerative change. No acute skeletal abnormality. IMPRESSION: 1. Single loop of mildly dilated proximal jejunum represents a nonspecific finding. No definitive evidence for obstruction. Otherwise, no gross intrinsic bowel pathology within limitations of this exam. 2. Subcentimeter left lobe liver lesion too small to characterize. In the absence of risk factors for malignancy, no further workup is required. 3. Atherosclerosis. Coronary arterial calcifications. Infrarenal aortic ectasia. SL: [id number] 09/16/2018 - - Read by: Kevyn Dyer MD Dictated Date/time: 09/17/18 16:00 Electronically Signed by: Kevyn Dyer MD 09/17/18 16:28 FINAL REPORT [facility] Vital Signs Vital Sign Value Date Comments Source Encounters Location Location Details Encounter Type Encounter Number Reason For Visit Attending Provider ADM Date DC Date Status Source Procedures Procedure Code Date Perfomer Comments Source
--- OUTSIDE RECORDS SUMMARY | 2018-10-01 06:58 | XMS REPORT | Clinical Summary ---
Author Author [facility] Address Unknown Phone Unavailable Care Team Providers Care Shipping Weigher Name Role Phone JonellePaige E PCP Allergies No Known Allergies Medications End Date Status Medication Sig Dispensed Refills Start Date Active doxazosin (CARDURA) 1 MG Take 1 mg by 0 tablet mouth nightly. Active gabapentin (NEURONTIN) Take 300 mg 0 300 MG capsule by mouth 3 (three) times daily. Active simvastatin (ZOCOR) 40 MG Take 40 mg by 0 tablet mouth nightly. Active Problems Not on file Social History Date Tobacco Use Types Packs/Day Years Used Current Every Day Smoker 0.25 Smokeless Tobacco: Never Used Alcohol Use Drinks/Week oz/Week Comments Yes beer occasionally Sex Assigned at Date Recorded Not on file Industry Job Start Date Occupation Not on file Not on file Not on file Travel End Travel History Travel Start No recent travel history available. Last Filed Vital Signs Not on file Plan of Treatment Not on file Implants Device Identifier Shelf Expiration Date Model / Serial / Lot Implanted Type Area Manufactur er [id number] / / 129 205 Wire [id number] - Fracture/F Right: Foot JOHN:ST [id number] ixation ISA Implanted: Qty: 1 on 02/28/2017 by John Szymanski [id number] / / 129 205 Wire [id number] - Fracture/F Right: Foot JOHN:ST [id number] ixation ISA Implanted: Qty: 1 on 02/28/2017 by John Szymanski Results Not on fileafter 09/30/2017 Insurance Payer Benefit Subscriber ID Type Phone Address Plan / Group [employer] xxxxxxxxx Maps PPO PFFS Contracted
[2018-10-01 11:15] VITALS: BP 150/95
== END | disposition home or self-care (01) ==
LOC: OR 06:55
PROVIDERS: ATTEND Internal Medicine Gastroenterology
DX: R13.10 Dysphagia, unspecified (principal); D12.0 Benign neoplasm of cecum; D12.2 Benign neoplasm of ascending colon; D12.4 Benign neoplasm of descending colon; K29.70 Gastritis, unspecified, without bleeding; K29.80 Duodenitis without bleeding; K44.9 Diaphragmatic hernia without obstruction or gangrene; K64.8 Other hemorrhoids; I77.819 Aortic ectasia, unspecified site; K76.9 Liver disease, unspecified; K83.8 Other specified diseases of biliary tract; K56.609 Unspecified intestinal obstruction, unspecified as to partial versus complete obstruction; B96.81 Helicobacter pylori [H. pylori] as the cause of diseases classified elsewhere; I10 Essential (primary) hypertension; E78.00 Pure hypercholesterolemia, unspecified; Z88.6 Allergy status to analgesic agent; Z01.810 Encounter for preprocedural cardiovascular examination; Z01.812 Encounter for preprocedural laboratory examination; Z87.891 Personal history of nicotine dependence
CPT/HCPCS: 36415; 43239; 45384; 85025; 93005; J2250; 45378

== ENCOUNTER → 2018-12-06 | Outpatient (CLI) | payer OTHER ==
[~2018-12-06] MED LIST changes: -FENTANYL CITRATE/PF 100MCG/2 ML INJ ONE; -MIDAZOLAM HCL 2 MG/2 ML VIAL ONE; -PROPOFOL IV EMULSION 10 MG/ML 50 ML VIAL ONE
--- NOTE | 2018-12-06 10:27 | Diagnostic Imaging Report ---
EXAMINATION: CHEST 2 VIEWS INDICATION: Cough ^[id number] ^1000 ^COUGH COMPARISON: None FINDINGS: TUBES and LINES: None. LUNGS: Lungs are well inflated. Perihilar peribronchial hazy opacity could be due to bronchitis. Likely minimal scarring/atelectasis at the left lung base. There is no evidence of pneumonia or pulmonary edema. PLEURA: No pleural effusion or pneumothorax. HEART AND MEDIASTINUM: The cardiomediastinal silhouette is unremarkable. BONES AND SOFT TISSUES: No acute osseous lesion. Soft tissues are unremarkable. UPPER ABDOMEN: No free air under the diaphragm. IMPRESSION: Perihilar peribronchial hazy opacity could be due to bronchitis. Signed by: Dr. Michoacano Yen M.D. on 12/06/2018 10:24 AM
== END ==
LOC: RAD 10:02
PROVIDERS: ATTEND Internal Medicine Pulmonary Disease
DX: R05 Cough (principal)
CPT/HCPCS: 71046